=== PATIENT | male | born 1995 | race African-American/Black ===

== ENCOUNTER 2021-01-10 11:53 | Day surgery (SDC) | payer OTHER ==
[~2021-01-10] VITALS: Ht 177.8 cm; Wt 69.9 kg
[~2021-01-10 11:53] MED LIST: NS 1,000 ML IV ONE
[2021-01-10] MEDS ORDERED: propofoL 200 MG/20 ML VIAL As Ordered ONE (13:23)
[2021-01-10] MEDS ORDERED: fentaNYL 100 MCG/2 ML INJECTION (J3010) As Ordered ONE (13:23)
--- NOTE | 2021-01-10 13:42 | ROOR ---
Patient Name: Ward Lay Procedure Date: 01/10/2021 1:29 PM Date of : 1995 Age: 25 Room: [facility] Gender: Male Note Status: Finalized Procedure: Upper Endoscopy + Biopsies Indications: Epigastric abdominal pain, Nausea with vomiting Providers: Gold Amaral MD Referring MD: SULEMAN SHELL MD Requesting Provider: Medicines: Monitored Anesthesia Care Complications: No immediate complications. Procedure: Pre-Anesthesia Assessment: - The heart rate, respiratory rate, oxygen saturations, blood pressure, adequacy of pulmonary ventilation, and response to care were monitored throughout the procedure. The Endoscope was introduced through the mouth, and advanced to the second part of duodenum. The upper GI endoscopy was accomplished without difficulty. The patient tolerated the procedure well. Findings: The Z-line was variable and was found 40 cm from the incisors. Multiple biopsies were obtained with cold forceps for evaluation to rule out Smith's Esophagus randomly at the gastroesophageal junction. One non-bleeding superficial gastric ulcer with no stigmata of bleeding was found in the prepyloric region of the stomach. Biopsies were taken with a cold forceps for Helicobacter pylori testing. The exam of the duodenum was otherwise normal. Impression: - Z-line variable, 40 cm from the incisors. - Non-bleeding gastric ulcer with no stigmata of bleeding. Biopsied. - Multiple biopsies were obtained at the gastroesophageal junction. - The examination was otherwise normal. Recommendation: - Patient has a contact number available for emergencies. The signs and symptoms of potential delayed complications were discussed with the patient. Return to normal activities tomorrow. Written discharge instructions were provided to the patient. - High fiber diet. - Discharge patient to home. - Follow an antireflux regimen. - Continue present medications. - Await pathology results. - Telephone GI clinic for pathology results in 1 week. - Return to referring physician. - The findings and recommendations were discussed with the patient's family. Procedure Code(s): --- Professional --- 16240, Esophagogastroduodenoscopy, flexible, transoral; with biopsy, single or multiple Diagnosis Code(s): --- Professional --- K22.8, Other specified diseases of esophagus K25.9, Gastric ulcer, unspecified as acute or chronic, without hemorrhage or perforation R10.13, Epigastric pain R11.2, Nausea with vomiting, unspecified CPT copyright 2019 [employer]. All rights reserved. The codes documented in this report are preliminary and upon remote coders review may be revised to meet current compliance requirements. Gold Amaral MD Gold Amaral MD 01/10/2021 1:41:48 PM Electronically signed by Gold Amaral MD Number of Addenda: 0 Note Initiated On: 01/10/2021 1:29 PM Estimated Blood Loss: Estimated blood loss: none.
[2021-01-10 13:57] VITALS: BP 143/67
== END 2021-01-10 13:58 | disposition home or self-care (01) ==
LOC: M OPP 11:53
PROVIDERS: ATTEND Internal Medicine Gastroenterology
DX: K22.8 Other specified diseases of esophagus (principal); K25.9 Gastric ulcer, unspecified as acute or chronic, without hemorrhage or perforation; R10.13 Epigastric pain; R11.2 Nausea with vomiting, unspecified; K58.8 Other irritable bowel syndrome; K29.70 Gastritis, unspecified, without bleeding; K20.90 Esophagitis, unspecified without bleeding
CPT/HCPCS: 43239; 88305; 88342; J3010

== ENCOUNTER → 2022-03-10 | Outpatient (CLI) | payer OTHER ==
[~2022-03-10] MED LIST changes: +CARA1TAB6 PO; +D 1010002 PO; +DICY10CA13 PO; +HYOS1TAB PO; -NS 1,000 ML IV ONE; +OMEP40CA5 PO
== END ==
LOC: M LABSMTC 10:46
PROVIDERS: ATTEND Anesthesiology
DX: Z01.818 Encounter for other preprocedural examination (principal); Z11.52 Encounter for screening for COVID-19

== ENCOUNTER 2022-03-13 07:34 | Day surgery (SDC) | payer OTHER ==
[~2022-03-13] VITALS: Ht 175.3 cm; Wt 68.9 kg
[~2022-03-13 07:34] MED LIST changes: +NS 1,000 ML IV ONE
[2022-03-13] MEDS ORDERED: fentaNYL 100 MCG/2 ML INJECTION As Ordered ONE (09:01)
[2022-03-13] MEDS ORDERED: LIDOCAINE 2% MDV 20ML VIAL As Ordered ONE (09:01)
[2022-03-13 09:42] VITALS: BP 129/59
== END 2022-03-13 09:44 | disposition home or self-care (01) ==
LOC: M OPP 07:34
PROVIDERS: ATTEND Internal Medicine Gastroenterology
DX: K62.5 Hemorrhage of anus and rectum (principal); K64.0 First degree hemorrhoids; R10.13 Epigastric pain; K31.89 Other diseases of stomach and duodenum; Z79.899 Other long term (current) drug therapy
CPT/HCPCS: 43239; 45378; 88305; J3010